=== PATIENT | male | born 1980 | race Caucasian/White ===

== ENCOUNTER 2018-07-14 20:57 | Emergency (ER) | payer MEDICAID ==
[~2018-07-14] VITALS: Ht 177.8 cm; Wt 87.2 kg
[2018-07-14 20:59] VITALS: BP 135/85
[2018-07-14] MEDS ORDERED: KETOROLAC 30 MG/1 ML IM ONE (21:30)
[2018-07-14] MEDS ORDERED: PROCHLORPERAZINE 5 MG/ML, 2ML IM ONE (21:30)
[2018-07-14] MEDS ORDERED: PROCHLORPERAZINE 5 MG/ML, 2ML ONE (21:31)
[2018-07-14] MEDS ORDERED: KETOROLAC 30 MG/1 ML ONE (21:31)
== END 2018-07-14 22:24 | disposition home or self-care (01) ==
LOC: ED 22:23
DX: R42 Dizziness and giddiness (principal); G40.909 Epilepsy, unspecified, not intractable, without status epilepticus
CPT/HCPCS: 96372; 99284; J0780; J1885

== ENCOUNTER 2018-07-15 03:16 | Emergency (ER) | payer MEDICAID ==
[~2018-07-15] VITALS: Ht 177.8 cm; Wt 88.6 kg
[2018-07-15 03:18] VITALS: BP 167/66
== END 2018-07-15 03:52 | disposition home or self-care (01) ==
LOC: ED 03:46
DX: T78.40XA Allergy, unspecified, initial encounter (principal); Z72.9 Problem related to lifestyle, unspecified; X58.XXXA Exposure to other specified factors, initial encounter
CPT/HCPCS: 99281